=== PATIENT | male | born 1985 | race Two or more races ===

== ENCOUNTER 2021-02-17 13:21 | Inpatient (IN) | payer OTHER ==
[~2021-02-17] VITALS: Ht 167.6 cm; Wt 78.0 kg
[2021-02-25] MEDS ORDERED: PREVACID15 MG PO (10:21)
[2021-02-25] MEDS ORDERED: INTESTINEX680 M1 PO (10:24)
[2021-02-25] MEDS ORDERED: AMOX-CLAV 875-1 EACH PO (10:24)
== END 2021-02-25 14:57 | disposition home or self-care (01) | DRG 391 ==
LOC: ER 13:21 → SURH 19:35
PROVIDERS: ADMIT Internal Medicine; ATTEND Internal Medicine
PROC: BW2110Z Computerized Tomography (CT Scan) of Abdomen and Pelvis using Low Osmolar Contrast, Unenhanced and Enhanced (ICD-10-PCS; principal; 2021-02-18)
PROC: BW2110Z Computerized Tomography (CT Scan) of Abdomen and Pelvis using Low Osmolar Contrast, Unenhanced and Enhanced (ICD-10-PCS; 2021-02-23)
DX: K57.32 Diverticulitis of large intestine without perforation or abscess without bleeding (principal); K63.1 Perforation of intestine (nontraumatic); Z20.822 Contact with and (suspected) exposure to COVID-19

== ENCOUNTER 2024-01-24 12:35 | Emergency (ER) | payer OTHER ==
[~2024-01-24] VITALS: Ht 167.6 cm; Wt 81.6 kg
[~2024-01-24 12:35] MED LIST: AMOX-CLAV 875-1 EACH PO; INTESTINEX680 M1 PO; PREVACID15 MG PO
[2024-01-24 12:55] VITALS: BP 127/71; O2SAT 99
[2024-01-24] MEDS ORDERED: ORPHENADRINE CITRATE 30 MG/ML AMPUL IM STA (13:59)
[2024-01-24] MEDS ORDERED: KETOROLAC TROMETHAMINE 30 MG VIAL IM STA (13:59)
[2024-01-24] MEDS ORDERED: KETOROLAC TROMETHAMINE 30 MG VIAL ONE (14:28)
[2024-01-24] MEDS ORDERED: ORPHENADRINE CITRATE 30 MG/ML AMPUL ONE (14:28)
[2024-01-24 14:42] LABS: HEMATOCRIT 41.2 % (39.0-48.0); MEAN CELL VOLUME 89.9 fL (80.0-100.00); MEAN CORPUSCULAR HEMOGLOBIN 30.5 pg (27.00-32.0); MEAN CORPUSCULAR HGB CONC 33.9 g/dl (32.0-36.0); PLATELET COUNT 328 K/uL (150-450); RED BLOOD COUNT 4.58 M/uL (4.00-6.00); RED CELL DISTRIBUTION WIDTH 14.6 % (11.5-14.5)
== END 2024-01-24 15:49 | disposition home or self-care (01) ==
LOC: ER 12:36
PROVIDERS: General Practice
DX: M54.30 Sciatica, unspecified side (principal); M54.89 Other dorsalgia